=== PATIENT | female | born 1965 | race Caucasian/White ===

== ENCOUNTER 2019-12-19 07:20 | Emergency (ER) | payer MEDICAID ==
[~2019-12-19] VITALS: Ht 157.5 cm; Wt 66.7 kg
--- NOTE | 2019-12-19 08:30 | NUR ---
patient came in to the er c/o left face and right hand pain. On room air, breathing evenly and unlabored. connected to the monitor and pulse ox. kept comfortable, will continue to monitor accordingly.
[2019-12-19 09:09] VITALS: BP 140/80
--- NOTE | 2019-12-19 09:09 | NUR ---
Patient discharged to home in stable condition. Written and verbal after care instructions given. Patient verbalizes understanding of instruction.
== END 2019-12-19 09:09 | disposition home or self-care (01) ==
LOC: ER 07:24
DX: S00.83XA Contusion of other part of head, initial encounter (principal); M79.641 Pain in right hand; Z98.890 Other specified postprocedural states; W22.8XXA Striking against or struck by other objects, initial encounter; Y93.89 Activity, other specified; Y92.89 Other specified places as the place of occurrence of the external cause; Y99.8 Other external cause status
CPT/HCPCS: 70150-TC; 73130-TC